=== PATIENT | male | born 1945 | race Caucasian/White ===

== ENCOUNTER 2017-02-13 04:00 | Emergency (ER) | payer MEDICARE, OTHER ==
--- NOTE | ~2017-02-13 | ER ---
PATIENT'S NAME: SIL KHOURY [facility] AGE: 71 Y [address] ROOM: [place] [address] LOCATION: [facility] ADMIT DATE: 02/13/2017 ER/Outpatient Report DISCHARGE DATE: 02/13/2017 FAMILY PHYSICIAN: James Barrientos MD ATTENDING PHYSICIAN: Alex Vásquez ADDENDUM: I received handoff in care of this patient from Dr. Vásquez at 0600 hours. The patient woke up at 3 o'clock this morning with chest discomfort and symptoms in both arms. He received aspirin. Initial EKG, chest x-ray, and labs, which were unremarkable. Plan is pending repeat enzymes and try to get him set up for a stress test today. On my initial evaluation, the patient is with minimal symptoms. He is declining further interventions. I discussed the case with Dr. Lim, the patient's preferred pest control chemical technician. Dr. Lim recommended admission for observation and evaluation. I expressed this to the patient. The patient has kindly declined that plan. He will contact Dr. Lim's clinic at 9 a.m. for followup today. All questions were answered and the patient was discharged in good condition. He was instructed to remain n.p.o. other than his a.m. medications until further instruction from the Cardiology clinic. All questions were answered to his satisfaction and the patient was discharged in good condition. MD ABHILASH MENDEZ/rachell /[id number] d: 02/13/171850 t: 02/15/17 1011, OUTPATIENT REPORT
--- NOTE | ~2017-02-13 | ER ---
PATIENT'S NAME: SIL KHOURY [facility] AGE: 71 Y [address] ROOM: [place] [address] LOCATION: [facility] ADMIT DATE: 02/13/2017 ER/Outpatient Report DISCHARGE DATE: FAMILY PHYSICIAN: James Barrientos MD ATTENDING PHYSICIAN: Alex Vásquez Time of Arrival: Admission date and time documented on the medical record. Time of Evaluation: I saw the patient at 0415 hours. CHIEF COMPLAINT: Mid anterior chest pressure. HISTORY OF PRESENT ILLNESS: This patient is a 71-year-old male who comes in with complaints of mid anterior chest pressure. This woke him up around 0300 hours at home. He was a little bit diaphoretic at that time, but he said off and on he has night sweats. He has some bilateral arm numbness. No jaw, neck, or back discomfort at this time. The patient has a history of hypertension and paroxysmal atrial fibrillation. He is on amiodarone, high-risk medication. He does have some anxiety problems. No known coronary artery disease, congestive heart failure, or pulmonary disease. No recent cough, cold, flus, fever, chills, or sweats. No fall or trauma. Does have a little bit of lightheadedness, but has had problems with lightheadedness and vertigo by history. No syncope, no near syncope. No headache or eyes, ears, nose, throat, neck, or spine pain. No abdominal pain, nausea, vomiting, diarrhea, urinary frequency or urgency, or dysuria. No joint or muscle swelling, redness, or pain. No skin eruptions or rash. No history of neuro changes, psych issues, or endocrine problems. HOME MEDICATIONS: See attached medication list. ALLERGIES: NONE. SOCIAL HISTORY: Nonsmoker. Occasional intake of alcohol. SIGNIFICANT PAST MEDICAL HISTORY: Insomnia, anxiety, vertigo, hypertension, prostate cancer, degenerative osteoarthritis, degenerative joint disease, palpitations, paroxysmal atrial fibrillation, and hard of hearing. OPERATIONS: Radiation therapy, bilateral total hip arthroplasty, bilateral inguinal herniorrhaphy, open reduction and internal fixation of left leg fracture, PATIENT'S NAME: SIL KHOURY [facility] AGE: 71 Y [address] ROOM: [place] [address] LOCATION: [facility] ADMIT DATE: 02/13/2017 ER/Outpatient Report DISCHARGE DATE: FAMILY PHYSICIAN: James Barrientos MD ATTENDING PHYSICIAN: Alex Vásquez colonoscopy, and vasectomy. REVIEW OF SYSTEMS: All systems reviewed by me are negative with the exception of those discussed in the history of present illness. PHYSICAL EXAMINATION: VITAL SIGNS: Temperature 97.1, tympanic; pulse 57; respirations 16; blood pressure 155/82; and O2 saturation on room air 96%. [place] Coma Scale of 15. HEAD: Normocephalic. EYES: Extraocular muscles intact. PERRL. Sclerae and conjunctivae clear, nonicteric. EARS, NOSE, AND THROAT: Clear. Mucous membranes moist. NECK: No nuchal rigidity. No thyromegaly or cervical adenopathy. No carotid bruits. No tenderness. SPINE: Nontender. No deformity. LUNGS: Clear. Good air flow. No rales, rhonchi, or wheezes. HEART: Regular. Pulses are palpable. No chest wall or ribcage pain to palpation. ABDOMEN: Soft, nondistended, nontender. Good bowel tones. No organomegaly or abnormal mass palpable. No CVA tenderness. PELVIS: Stable. EXTREMITIES: No peripheral edema, cyanosis, or deformity. NEUROVASCULAR: Intact. SKIN: Clear. No skin eruptions or rash. IMAGING DATA: EKG showed bradycardia with a rate of 56. No acute ST elevation, ischemic change, or arrhythmia. Chest x-ray shows some questionable basilar changes. No cardiomegaly. No acute infiltrate or failure pattern. We will review x- ray with the radiologist. LABORATORY DATA: D-dimer was normal at 0.45. Thyroid tests were normal. ProBNP was 35. CPK was 79. Afdcs-zp-[id number] cardiac enzymes were normal. CMS was normal. Magnesium 2.2. White count was 5000, 54 segs, 30 lymphs, 11 monos, 4 eos, 1 baso; hemoglobin was 15.8; hematocrit 46.6; platelet count was 181,000. PTT was 28, pro-time was 10.9 with an INR of 1.04. IMPRESSION: 1. Mid anterior chest pressure, etiology uncertain at this time. 2. Hypertension. 3. History of palpitations. 4. History of paroxysmal atrial fibrillation. 5. History of anxiety with some insomnia problems. PATIENT'S NAME: SIL KHOURY [facility] AGE: 71 Y [address] ROOM: [place] [address] LOCATION: [facility] ADMIT DATE: 02/13/2017 ER/Outpatient Report DISCHARGE DATE: FAMILY PHYSICIAN: James Barrientos MD ATTENDING PHYSICIAN: Alex Vásquez 6. History of degenerative osteoarthritis and degenerative joint disease. PLAN: Did transfer the patient's care over to Dr. Cr at shift change. I asked Dr. Cr to follow up with the patient's 2-hour cardiac enzymes and EKG test results, final diagnosis, and treatment plan. I did talk with the patient about probably needing some type of further cardiac workup such as a stress test and possible cardiac catheterization. He understands. MD MANDEEP DORSEY/modl /[id number] d: 02/13/17 06 t: 02/13/17 1821, OUTPATIENT REPORT
[~2017-02-13 04:00] MED LIST: ALEVE220 MG PO; ASPIRIN EC81 MG PO; COLACE100 MG PO; CORDARONE,PACE200 MG PO; DILAUDID 2MG(HYD2 MG PO; HYTRIN **IA 9/2 MG PO; MIRALAX17 GM PO; PRINIVIL OR ZES10 MG PO; SLEEP AID50 MG/30 M PO; THERA-VITE W/ B1 TAB PO; TYLENOL EXTRA500 MG PO; VALIUM5 MG PO; XARELTO10 MG PO
[2017-02-13 04:20] LABS: BASOPHIL % 0.8 %; EOSINOPHIL # 0.2 K/uL (0.0-0.5); EOSINOPHIL % 4.2 %; HEMATOCRIT 46.6 % (37.0-53.0); HEMOGLOBIN 15.8 g/dL (11.0-16.0); IMMATURE GRANULOCYTE % 0.2 %; LYMPHOCYTE # 1.5 K/uL (0.8-4.0); LYMPHOCYTE % 30.1 %; MCH 32.1 pg (27.0-34.0); MCHC 33.9 gm/dL (32.0-36.5); MCV 94.7 fl (83.0-98.0); MONOCYTE # 0.6 K/uL (0.0-1.0); MONOCYTE % 11.2 %; NEUTROPHIL # (ANC) 2.7 K/uL (1.4-9.0); NEUTROPHIL % 53.5 %; NRBC % 0 /100WBC (0-0.00); PLATELET COUNT 181 K/uL (150-450); RBC 4.92 M/uL (3.50-5.50); RDW-CV 13.2 % (11.9-14.6)
[2017-02-13 04:34] LABS: INR - (THERAPEUTIC) 1.04 (0.92-1.07); PROTIME 10.9 SECONDS (9.8-11.4); PTT 28 SECONDS (25-32)
[2017-02-13 04:40] LABS: ALBUMIN 3.5 gm/dL (3.5-5.0); ALK PHOS 63 IU/L (33-138); ALT 36 IU/L (12-78); BLOOD UREA NITROGEN 17 mg/dL (6-24); CALCIUM 8.5 mg/dL (8.5-10.5); CHLORIDE 108 mMol/L (96-110); CO2 24 mMol/L (22-32); CPK 79 IU/L (35-332); ESTIMATED GFR (MDRD EQUATION) > 60; SODIUM 141 mMol/L (135-145); TOTAL BILIRUBIN 0.9 mg/dL (0.0-1.5)
[2017-02-13 04:47] LABS: ANION GAP 12.9 (10.0-19.0); AST 33 IU/L (10-40); MAGNESIUM 2.2 mg/dL (1.8-2.6); POTASSIUM 3.9 mMol/L (3.7-5.1)
[2017-02-13 06:43] LABS: CPK 64 IU/L (35-332)
[2017-03-06] MEDS ORDERED: REMERON15 MG PO (14:52)
[2017-03-06] MEDS ORDERED: BUSPIRONE HCL15 MG PO (14:53)
[2017-03-06] MEDS ORDERED: LISINOPRIL-HCT1 EACH PO (14:54)
== END 2017-02-13 07:22 | disposition disaster alternative care site (69) ==
LOC: GMED 04:00
PROVIDERS: Emergency Medicine
DX: R07.89 Other chest pain (principal); I10 Essential (primary) hypertension; I48.0 Paroxysmal atrial fibrillation; M19.90 Unspecified osteoarthritis, unspecified site; F41.9 Anxiety disorder, unspecified; Z96.643 Presence of artificial hip joint, bilateral; Z98.52 Vasectomy status; Z79.899 Other long term (current) drug therapy; Z79.82 Long term (current) use of aspirin

== ENCOUNTER → 2017-02-14 | Outpatient (CLI) | payer MEDICARE, OTHER ==
[~2017-02-14] MED LIST changes: +BUSPIRONE HCL15 MG PO; +LIPITOR40 MG PO; +LISINOPRIL-HCT1 EACH PO; +REMERON15 MG PO
--- NOTE | ~2017-02-14 | ESTC ---
Cardiac Perfusion Imaging Demographics Patient Name PENG Rios Gender Male Patient Number [id number] Race Visit Number [id number] Ethnicity [employer] ID Room Number Accession Number [id number] Height Date of 1945 Weight Age 71 year(s) BSA Referring Physician Carina CHAMBERS MD Interpreting Carina Kiran Date of study 02/14/2017 Physician Supervising /CORAP Carina Kiran NM Technologist Stephanie Anand MD Ordering Physician Carina Kiran Stress MD hazardous material technician Stress ECG Reading Carina Kiran Nurse Laura Toscano Physician RN Diaz Balderrama RN Procedure Procedure Type: Nuclear Stress Test:Exercise, Cardiolite Stress Test Procedure Start time: 02/14/2017 08:30 Indications: Chest pain. Risk Factors The patient risk factors include:treated hypertension. Conclusions Summary Inferior medium to large mild fixed defect most consistent with soft tissue attenuation. LVEF:71%. Normal WM. Stress Protocols Resting ECG RSR Pre-stress physical exam: Un changed. Predicted HR: 150 bpm ECG Findings Arrhythmias No rhythm abnormality. Symptoms No chest pain. Stress Interpretation Duration: 8 mins. Achieved: 94% MPHR. DP:23 K. METs:10.10. No chest pain. Reason for termination:Fatigue and SOB. EKG:Positive for ischemia. No arrythmias. DTS:3 (moderate risk). Imaging Results High risk findings Summed scores - Summed stress score: 2 - Summed rest score: 7 - Summed difference score: -5 Stress ejection Ejection fraction:71 % EDV :84 ml ESV :24 ml Stroke volume :60 ml LV mass :115 gr LV size:Normal Normal LV function Imaging Protocols Rest Stress Isotope:Tc99m Sestamibi IV Isotope: Tc99m Sestamibi IV Isotope dose:10.8 mCi Isotope dose:33.7 mCi Date:02/14/2017 07:04 Date:02/14/2017 09:01 Technique: SPECT Technique: Gated Supine SPECT Supine Scan Time:45-60 minutes post Scan Time:15-30 minutes post injection injection Medical History Admission Data Admission date: 02/14/2017 Admission Time: 06:45 Hospital Status: Outpatient. Signatures dtt: Qiana Lim dtd: 02/14/17 0830 Physician Self Edit
== END | disposition disaster alternative care site (69) ==
LOC: GRAD 06:45
DX: R07.9 Chest pain, unspecified (principal); I10 Essential (primary) hypertension
CPT/HCPCS: A9500

== ENCOUNTER → 2017-02-14 | Outpatient (CLI) | payer MEDICARE, OTHER | END | disposition disaster alternative care site (69) | LOC: LGSOS 09:52 | DX: R07.9 Chest pain, unspecified (principal) ==

== ENCOUNTER → 2017-03-07 | Outpatient (CLI) | payer MEDICARE, OTHER ==
[2017-03-07 09:32] LABS: HEMATOCRIT 46.5 % (37.0-53.0); HEMOGLOBIN 15.3 g/dL (11.0-16.0); MCHC 32.9 gm/dL (32.0-36.5); MCV 94.3 fl (83.0-98.0); MPV 9.3 fl (9.4-12.4); PLATELET COUNT 187 K/uL (150-450); RBC 4.93 M/uL (3.50-5.50); RDW-CV 12.9 % (11.9-14.6); WBC 5.2 K/uL (4.0-11.0)
[2017-03-07 09:42] LABS: ALBUMIN 3.4 gm/dL (3.5-5.0); BLOOD UREA NITROGEN 12 mg/dL (6-24); CALCIUM 8.8 mg/dL (8.5-10.5); CHLORIDE 106 mMol/L (96-110); CO2 28 mMol/L (22-32); ESTIMATED GFR (MDRD EQUATION) > 60; PHOSPHORUS 2.7 mg/dL (2.5-4.9); SODIUM 141 mMol/L (135-145)
[2017-03-07 10:02] LABS: ABSOLUTE NEUTROPHIL CT (ANC) 4.3 K/uL (1.4-9.0); BANDED NEUTROPHIL # 0.2 K/uL (0.0-0.1); BANDED NEUTROPHILS % 3 %; LYMPHOCYTE # 0.7 K/uL (0.8-4.0); LYMPHOCYTE % 14 %; MONOCYTE # 0.2 K/uL (0.0-1.0); SEGMENTED NEUTROPHIL # 4.1 K/uL (1.4-9.0); SEGMENTED NEUTROPHIL % 79 %
== END ==
LOC: LGSOS 09:09
PROVIDERS: Internal Medicine Interventional Cardiology
DX: R94.39 Abnormal result of other cardiovascular function study (principal)

== ENCOUNTER 2017-03-09 05:58 | Outpatient (CLI) | payer MEDICARE, OTHER ==
[~2017-03-09] VITALS: Ht 167.6 cm; Wt 69.9 kg
--- NOTE | ~2017-03-09 | CATH ---
Cardiac Diagnostic + PCI Report Demographics Patient Name PENG Rios Gender Male Date of 1945 Age 71 year(s) Patient Number [id number] Date of Study 03/09/2017 Visit Number [id number] Room Number [id number] [place] [id number] Ht 167.64 cm Wt 69.9 kg Referring Iliana Ramirez Primary Physician Physician Maria Luisa PURCELL Performing Carina Secondary Physician Physician Qiana PURCELL Diagnostic Carina Assisting Physician Physician Qiana PURCELL Interventional Carina Physician Hr Assistant Physician Qiana PURCLEL Findings and Conclusions Diagnostic Findings and Conclusion Normal LVEDP (11). At first septal subsystems engineer 50% LAD stenosis. IFR 0.92. D1 ostial proximal 50% stenosis. Diagnostic Recommendations IFR of LAD. Interventional Findings and Conclusion IFR of LAD = 0.92. Interventional Recommendations Medical treatment for now. Procedure Description The patient was brought to the diagnostic cardiac catheterization-EP laboratory in the fasting, non-sedated state. Informed consent was obtained in the written and verbal form after the risks and benefits were explained. The patient had no further questions and agreed to proceed. The planned puncture-incision site(s) were shaved and prepped with ChloraPrep and draped in the usual sterile manner. Conscious sedation and pain control medications were delivered by a registered nurse under physician guidance. Surface ECG rhythm, blood pressure measurement, and pulse oximetry were monitored throughout the procedure. Arterial access. The access site was infiltrated with lidocaine. The vessel was entered with the Seldinger technique. A sheath was advanced into the vessel and used for catheter placement. Selective left coronary angiography. A catheter was advanced into the left coronary vessel ostium under Fluoroscopic guidance. Contrast was injected by hand. Images were obtained in multiple projections. Selective right coronary angiography. A catheter was advanced into the right coronary vessel ostium under fluoroscopic guidance. Contrast was injected by hand. Images were obtained in multiple projections. Left heart catheterization. A catheter was advanced across the aortic valve to the left ventricle under fluoroscopic guidance. Resting hemodynamics were obtained. Arterial artery hemostasis was achieved. The patient was transferred to a regular nursing floor via cart accompanied by a nurse. The patient left the laboratory in stable condition. Diagnostic Cath Status: Elective Interventional Cath Status: Elective Procedure Procedure Type Diagnostic procedure:Angiography:, Coronary Angios w/LHC PCI procedure:Additional Imaging:, FFR/iFR:, Initial Vessel Indications: Chest tightness and Abnormal Stress Test. The procedure was explained in detail to the patient. Risks, complications and alternative treatments were reviewed. Written consent was obtained. Medications Reviewed with Patient prior to Procedure. Angiographic Findings Dominance: Left Cardiac Arteries and Lesion Findings LMCA: Normal (0% Stenosis). LAD: D1 small to medium with ostial proximal stenosis. Lesion on Mid LAD: Proximal subsection.50% stenosis .The guidewire cross was successful. FFR + + + + !FFR !Stage/Medication !Dosage ! + + + + !0.92 ! ! ! + + + + Comments:At first septal subsystems engineer. Devices used - Verrata Pressure Wire. Number of passes: 1. Lesion on 1st Diag: Ostial.50% stenosis . Comments:After initial septal perforation. LCx: Dominant. Luminal irregularities. OM 3 is large. RCA: Non-dominant. Coronary Tree Procedure Data Procedure Date Date: 03/09/2017Start: 08:56 AMEnd: 10:05 AM Entry Locations - Retrograde Percutaneous access was performed through the Right Radial artery (Primary location). A 6 Fr sheath was inserted. Hemostasis was successfully obtained using Mechanical Compression. Closure Comments: 16 ml of air in R. Band by Nickie Solo. . Procedure Medications Order and Administration + + + + + !Time !Medication !Dosage !Route ! + + + + + !03/09/2017 08:50 !Fentanyl !50 mcg !I.V. ! !AM ! ! ! ! + + + + + !03/09/2017 08:54 !Versed !1 mg !I.V. ! !AM ! ! ! ! + + + + + !03/09/2017 09:00 !Radial 2% Lidocaine !40 mg !I.A. ! !AM ! ! ! ! + + + + + !03/09/2017 09:00 !Radial Nitroglycerin !50 mcg !I.A. ! !AM ! ! ! ! + + + + + !03/09/2017 09:04 !0.9% NaCl !100 ml !I.V. bolus ! !AM ! ! ! ! + + + + + !03/09/2017 09:00 !Heparin (ACC_3) !5000 units !I.V. ! !AM ! ! ! ! + + + + + !03/09/2017 09:17 !Angiomax (Bivalirudin) !52.5 mg !I.V. bolus ! !AM !(ACC_5) ! ! ! + + + + + 03/09/2017 09:18 !Angiomax (Bivalirudin) !1.75 mg/kg/hr!I.V. drip ! !AM !(ACC_5) ! ! ! + + + + + !03/09/2017 09:19 !Versed !1 mg !I.V. ! !AM ! ! ! ! + + + + + !03/09/2017 09:49 !Angiomax (Bivalirudin) ! ! ! !AM !(ACC_5) ! ! ! + + + + + Devices Used - A6 Fr. BS JR 4 Diag. Catheterwas used for:Right coronary angiography. - A6 Fr. BS JL 3.5 Diag. Catheterwas used for:Left coronary angiography. - A6 Fr. JL3.5 Guide Catheterwas used for:LAD Intervention. Contrast Material - Isovue [id number] ml Fluoroscopy Time: Diagnostic: 8:24 minutes. Total: 8:24 minutes. Estimated Blood Loss: 20 ml. Medical History Allergies - Morphine. Risk Factors The patient risk factors include:hypertension. Admission Data Admission Date: 03/09/2017 Admission Time: 05:58 AM Admit Source: Other Insurance Payors: Medicare. Admission Medications + +------+------+ + + + + !Medication !Dosage!Times !Last !Last !Administered !Comments ! ! ! !Per !Delivery !Delivery ! ! ! ! ! !Day !Date !Time ! ! ! + +------+------+ + + + + !Aspirin ! ! ! ! ! ! ! !(any) ! ! ! ! ! ! ! + +------+------+ + + + + !MADELAINE ! ! ! ! ! ! ! !Inhibitor ! ! ! ! ! ! ! !(any) ! ! ! ! ! ! ! + +------+------+ + + + + Clinical Evaluation Leading to Procedure - The patient's CAD presentation was assessed as: Unstable angina. - The patient's anginal syndrome during the past two weeks was assessed as: Class IV according to the [place] Cardiovascular Society Classification System (CCS). Hemodynamics Condition: Rest O2 Consumption: Estimated: 200.66Heart Rate: 60 bpm Pressures (mmHg) +-----+ + !Site !Pressure ! +-----+ + !LV !109/2 ,9 ! +-----+ + !LV !111/2 ,10 ! +-----+ + !AO !102/57 (79) ! +-----+ + !LV !110/2 ,10 ! +-----+ + !AO !105/59 (82) ! +-----+ + Valve Gradients and Areas + +---------+---------+---------+ +---------+ + !Valve !Peak !Mean !Area !Index !Flow !Source ! + +---------+---------+---------+ +---------+ + !Aortic !4 !4 ! ! ! ! ! + +---------+---------+---------+ +---------+ + !Aortic !4 !4 ! ! ! ! ! + +---------+---------+---------+ +---------+ + Shunts Oxygen Values O2 Capacity 208.08 O2 Consumption 200.66 Discharge Data Discharge Date: 03/09/2017 Hospital Status: Outpatient Signatures dtt: Qiana Lim dtmallorie: 03/09/17 0856 Physician Self Edit
[~2017-03-09 05:58] MED LIST changes: -LIPITOR40 MG PO
[2017-03-09] MEDS ORDERED: LIPITOR40 MG PO (15:13)
== END 2017-03-09 16:25 | disposition disaster alternative care site (69) ==
LOC: GPOC 05:58 → GPCU 05:58 → GPOC 06:00
PROC: 4A023N7 Measurement of Cardiac Sampling and Pressure, Left Heart, Percutaneous Approach (ICD-10-PCS; principal; 2017-03-09)
PROC: B216YZZ Fluoroscopy of Right and Left Heart using Other Contrast (ICD-10-PCS; 2017-03-09)
DX: R94.39 Abnormal result of other cardiovascular function study (principal); I25.10 Atherosclerotic heart disease of native coronary artery without angina pectoris
CPT/HCPCS: C1769; C1887; C1894; J0583; J1644; J2001; J2250; J3010; J7030; J7060